=== PATIENT | female | born 1970 | race Two or more races ===

== ENCOUNTER 2024-02-22 10:44 | Emergency (ER) | payer OTHER ==
[~2024-02-22] VITALS: Ht 154.9 cm; Wt 57.2 kg
[2024-02-22] MEDS ORDERED: KETOROLAC TROMETHAMINE 60 MG VIAL IM STA (13:18)
== END 2024-02-22 17:05 | disposition home or self-care (01) ==
LOC: ER 10:44
DX: S90.32XA Contusion of left foot, initial encounter (principal); X50.1XXA Overexertion from prolonged static or awkward postures, initial encounter; Y93.89 Activity, other specified; Y92.480 Sidewalk as the place of occurrence of the external cause; Z88.8 Allergy status to other drugs, medicaments and biological substances